=== PATIENT | female | born 1950 | race Caucasian/White ===

== ENCOUNTER 2017-12-24 23:08 | Emergency (ER) | payer MEDICARE ==
[~2017-12-24] VITALS: Ht 162.6 cm; Wt 70.3 kg
[~2017-12-24 23:08] MED LIST: DOCU100 PO; HYDR1TAB94 PO; IBUP600 PO; Milk Of Ma400 MG/5 M PO
[2017-12-25 00:08] LABS: BASOPHILS ABSOLUTE AUTO 0.04 K/mm3 (0.00-0.23); BASOPHILS PERCENT AUTO 1 % (0-2); EOSINOPHILS ABSOLUTE AUTO 0.27 K/mm3 (0.00-0.68); EOSINOPHILS PERCENT AUTO 4 % (0-6); Hematocrit 36.7 % (33.0-51.0); Hemoglobin 11.9 g/dL (11.5-16.0); IMMATURE GRAN ABSOLUTE AUTO 0.02 K/mm3 (0.00-0.10); IMMATURE GRAN PERCENT AUTO 0 % (0-1); LYMPHOCYTES ABSOLUTE AUTO 2.38 K/mm3 (0.84-5.20); LYMPHOCYTES PERCENT AUTO 32 % (21-46); MONOCYTES ABSOLUTE AUTO 0.72 K/mm3 (0.16-1.47); MONOCYTES PERCENT AUTO 10 % (4-13); Mean Corpuscular HGB 30.3 pg (26.0-34.0); Mean Corpuscular HGB Conc 32.4 g/dL (31.5-36.5); Mean Corpuscular Volume 93 fL (80-100); Mean Platelet Volume 9.8 fL (9.1-12.4); NEUTROPHILS ABSOLUTE AUTO 4.01 K/mm3 (1.96-9.15); NEUTROPHILS PERCENT AUTO 54 % (41-73); Platelet Count 203 K/mm3 (150-400); RDW Standard Deviation 47.3 fL (35.1-46.3); Red Blood Cell Count 3.93 M/mm3 (3.80-5.20); White Blood Cell Count 7.44 K/mm3 (4.00-11.30)
[2017-12-25 00:29] LABS: Alanine Aminotransfer (ALT/SGP 41 U/L (12-78); Albumin, Blood 3.1 g/dL (3.4-5.0); Albumin/Globulin Ratio 0.9 (0.8-1.8); Alk Phos 81 U/L (50-136); Anion Gap 8 mmol/L (6-16); Aspartate Aminotrans (AST/SGOT 28 U/L (12-37); Bilirubin, Total 0.2 mg/dL (0.1-1.0); Blood Urea Nitrogen 19 mg/dL (8-24); Bun/Creatinine Ratio 20.5 (12.0-20.0); CO2, Blood 24 mmol/L (21-32); Calcium, Blood 7.4 mg/dL (8.5-10.1); Chloride, Blood 109 mmol/L (98-108); Creatinine, Blood 0.93 mg/dL (0.40-1.00); Ethanol (Alcohol), Blood, Med <3 mg/dL; Globulin, Blood 3.5 g/dL (2.2-4.0); Glomerular Filtration Rate >60 (60-); Glucose, Blood 100 mg/dL (70-99); Potassium, Blood 4.1 mmol/L (3.5-5.5); Sodium, Blood 141 mmol/L (136-145); Total Protein, Blood 6.6 g/dL (6.4-8.2); Troponin I <0.015 ng/mL (0.000-0.040)
== END 2017-12-25 01:30 | disposition home or self-care (01) ==
LOC: ER 23:08
PROVIDERS: Emergency Medicine
DX: R29.818 Other symptoms and signs involving the nervous system (principal); Z88.8 Allergy status to other drugs, medicaments and biological substances
CPT/HCPCS: 70450; 71046; 80053; 81000; 84484; 85025; 99284; G0480

== ENCOUNTER → 2019-09-13 | Outpatient (CLI) | payer MEDICARE | END | disposition home or self-care (01) | LOC: LAB SHORT 11:02 → LAB EV 11:02 | DX: N39.0 Urinary tract infection, site not specified (principal) | CPT/HCPCS: 87077; 87086; 87186 ==

== ENCOUNTER → 2020-10-10 | Outpatient (CLI) | payer MEDICARE | END | disposition home or self-care (01) | LOC: LAB SHORT 09:52 → LAB EV 09:52 | DX: N39.0 Urinary tract infection, site not specified (principal) | CPT/HCPCS: 87086 ==

== ENCOUNTER → 2021-03-06 | Outpatient (CLI) | payer MEDICARE | END | disposition home or self-care (01) | LOC: LAB EV 12:53 → LAB SHORT 12:53 | DX: N39.0 Urinary tract infection, site not specified (principal) | CPT/HCPCS: 87077; 87086; 87186 ==

== ENCOUNTER → 2021-04-03 | Outpatient (CLI) | payer MEDICARE | END | disposition home or self-care (01) | LOC: LAB SHORT 17:23 → LAB 17:23 | DX: N39.0 Urinary tract infection, site not specified (principal) | CPT/HCPCS: 87086 ==

== ENCOUNTER → 2022-01-17 | Outpatient (CLI) | payer MEDICARE ==
[2022-01-17 16:41] LABS: BASOPHILS ABSOLUTE AUTO 0.02 K/mm3 (0.00-0.23); BASOPHILS PERCENT AUTO 0 % (0-2); EOSINOPHILS ABSOLUTE AUTO 0.16 K/mm3 (0.00-0.68); EOSINOPHILS PERCENT AUTO 2 % (0-6); Hematocrit 40.2 % (33.0-51.0); Hemoglobin 12.9 g/dL (11.5-16.0); IMMATURE GRAN ABSOLUTE AUTO 0.03 K/mm3 (0.00-0.10); IMMATURE GRAN PERCENT AUTO 0 % (0-1); LYMPHOCYTES ABSOLUTE AUTO 2.31 K/mm3 (0.84-5.20); LYMPHOCYTES PERCENT AUTO 26 % (21-46); MONOCYTES ABSOLUTE AUTO 0.55 K/mm3 (0.16-1.47); MONOCYTES PERCENT AUTO 6 % (4-13); Mean Corpuscular HGB 30.3 pg (26.0-34.0); Mean Corpuscular HGB Conc 32.1 g/dL (31.5-36.5); Mean Corpuscular Volume 94 fL (80-100); Mean Platelet Volume 10.4 fL (9.1-12.4); NEUTROPHILS ABSOLUTE AUTO 5.91 K/mm3 (1.96-9.15); NEUTROPHILS PERCENT AUTO 66 % (41-73); Platelet Count 213 K/mm3 (150-400); RDW Coefficient Variation 14.5 % (11.7-14.2); RDW Standard Deviation 49.9 fL (35.1-46.3); Red Blood Cell Count 4.26 M/mm3 (3.80-5.20); White Blood Cell Count 8.98 K/mm3 (4.00-11.30)
== END ==
LOC: LAB SHORT 16:05
PROVIDERS: Hospitalist
DX: M79.662 Pain in left lower leg (principal)
CPT/HCPCS: 85025; 85379; 85651

== ENCOUNTER 2022-02-10 16:27 | Emergency (ER) | payer MEDICARE ==
[~2022-02-10] VITALS: Ht 162.6 cm; Wt 65.8 kg
[2022-02-10 17:03] LABS: BASOPHILS ABSOLUTE AUTO 0.03 K/mm3 (0.00-0.23); BASOPHILS PERCENT AUTO 0 % (0-2); EOSINOPHILS ABSOLUTE AUTO 0.14 K/mm3 (0.00-0.68); EOSINOPHILS PERCENT AUTO 2 % (0-6); Hemoglobin 12.9 g/dL (11.5-16.0); IMMATURE GRAN ABSOLUTE AUTO 0.02 K/mm3 (0.00-0.10); IMMATURE GRAN PERCENT AUTO 0 % (0-1); LYMPHOCYTES ABSOLUTE AUTO 2.17 K/mm3 (0.84-5.20); LYMPHOCYTES PERCENT AUTO 24 % (21-46); MONOCYTES ABSOLUTE AUTO 0.59 K/mm3 (0.16-1.47); MONOCYTES PERCENT AUTO 7 % (4-13); Mean Corpuscular HGB Conc 32.3 g/dL (31.5-36.5); Mean Corpuscular Volume 93 fL (80-100); Mean Platelet Volume 9.8 fL (9.1-12.4); NEUTROPHILS ABSOLUTE AUTO 6.14 K/mm3 (1.96-9.15); NEUTROPHILS PERCENT AUTO 68 % (41-73); Platelet Count 214 K/mm3 (150-400); RDW Coefficient Variation 14.6 % (11.7-14.2); RDW Standard Deviation 49.8 fL (35.1-46.3); White Blood Cell Count 9.09 K/mm3 (4.00-11.30)
[2022-02-10 17:29] LABS: Alanine Aminotransfer (ALT/SGP 32 U/L (12-78); Albumin, Blood 3.6 g/dL (3.4-5.0); Alk Phos 82 U/L (50-136); Anion Gap 9 mmol/L (6-16); Aspartate Aminotrans (AST/SGOT 15 U/L (12-37); Bilirubin, Total 0.5 mg/dL (0.1-1.0); Blood Urea Nitrogen 21 mg/dL (8-24); Bun/Creatinine Ratio 23.8 (12.0-20.0); CO2, Blood 25 mmol/L (21-32); Calcium, Blood 8.7 mg/dL (8.5-10.1); Chloride, Blood 108 mmol/L (98-108); Creatinine, Blood 0.88 mg/dL (0.40-1.00); Globulin, Blood 3.5 g/dL (2.2-4.0); Glomerular Filtration Rate >60 (60-); Glucose, Blood 104 mg/dL (70-99); Potassium, Blood 3.6 mmol/L (3.5-5.5); Sodium, Blood 142 mmol/L (136-145); Total Protein, Blood 7.1 g/dL (6.4-8.2)
[2022-02-10 18:14] LABS: C-REACTIVE PROTEIN, EXT RANGE <0.290 mg/dL (0.000-0.300); Magnesium, Blood 2.1 mg/dL (1.6-2.4); Phosphorus, Blood 3.6 mg/dL (2.5-4.9)
== END 2022-02-10 21:28 | disposition home or self-care (01) ==
LOC: ER 16:27
PROVIDERS: Physician Assistant
DX: M79.662 Pain in left lower leg (principal)
CPT/HCPCS: 36415; 71046; 80053; 83690; 83735; 83880; 84100; 84484; 85025; 86140; 93005; 93010; 93971; 99284-25

== ENCOUNTER 2022-04-26 15:50 | Emergency (ER) | payer MEDICARE ==
[~2022-04-26] VITALS: Ht 162.6 cm; Wt 63.5 kg
== END 2022-04-26 18:10 | disposition home or self-care (01) ==
LOC: ER 15:50
DX: S83.91XA Sprain of unspecified site of right knee, initial encounter (principal); X50.1XXA Overexertion from prolonged static or awkward postures, initial encounter
CPT/HCPCS: 73562-RT

== ENCOUNTER 2023-03-18 13:54 | Emergency (ER) | payer MEDICARE ==
[~2023-03-18] VITALS: Ht 162.6 cm; Wt 63.5 kg
[2023-03-18 14:47] LABS: BASOPHILS ABSOLUTE AUTO 0.03 K/mm3 (0.00-0.23); BASOPHILS PERCENT AUTO 0 % (0-2); EOSINOPHILS ABSOLUTE AUTO 0.12 K/mm3 (0.00-0.68); EOSINOPHILS PERCENT AUTO 2 % (0-6); Hematocrit 38.8 % (33.0-51.0); Hemoglobin 12.9 g/dL (11.5-16.0); IMMATURE GRAN ABSOLUTE AUTO 0.02 K/mm3 (0.00-0.10); IMMATURE GRAN PERCENT AUTO 0 % (0-1); LYMPHOCYTES ABSOLUTE AUTO 2.27 K/mm3 (0.84-5.20); LYMPHOCYTES PERCENT AUTO 31 % (21-46); MONOCYTES ABSOLUTE AUTO 0.58 K/mm3 (0.16-1.47); MONOCYTES PERCENT AUTO 8 % (4-13); Mean Corpuscular HGB 30.9 pg (26.0-34.0); Mean Corpuscular HGB Conc 33.2 g/dL (31.5-36.5); Mean Corpuscular Volume 93 fL (80-100); Mean Platelet Volume 10.2 fL (9.1-12.4); NEUTROPHILS ABSOLUTE AUTO 4.21 K/mm3 (1.96-9.15); NEUTROPHILS PERCENT AUTO 58 % (41-73); NRBC ABSOLUTE 0.02 K/mm3 (0.00-0.02); NRBC Auto 0.3 /100 WBC (0.0-0.2); Platelet Count 186 K/mm3 (150-400); RDW Coefficient Variation 15.1 % (11.7-14.2); RDW Standard Deviation 51.5 fL (35.1-46.3); Red Blood Cell Count 4.18 M/mm3 (3.80-5.20); White Blood Cell Count 7.23 K/mm3 (4.00-11.30)
[2023-03-18 14:50] LABS: Albumin, Blood 4.1 g/dL (3.4-5.0); Albumin/Globulin Ratio 1.2 (0.8-1.8); Bilirubin, Total 0.7 mg/dL (0.1-1.0); Bun/Creatinine Ratio 24.4 (12.0-20.0); Calcium, Blood 9.1 mg/dL (8.5-10.1); Creatinine, Blood 0.78 mg/dL (0.40-1.00); Globulin, Blood 3.3 g/dL (2.2-4.0); Potassium, Blood 3.9 mmol/L (3.5-5.5); Total Protein, Blood 7.4 g/dL (6.4-8.2)
[2023-03-18 17:57] VITALS: BP 138/69
== END 2023-03-18 18:48 | disposition home or self-care (01) ==
LOC: ER 13:54
PROVIDERS: Physician Assistant
DX: R07.9 Chest pain, unspecified (principal); M79.602 Pain in left arm; M19.90 Unspecified osteoarthritis, unspecified site
CPT/HCPCS: 71046; 80053; 83880; 84484; 85025; 93005; 93010; 99284-25

== ENCOUNTER → 2023-11-20 | Outpatient (CLI) | payer MEDICARE | LOC: LAB SHORT 09:29 → LAB 09:29 | DX: N39.0 Urinary tract infection, site not specified (principal) | CPT/HCPCS: 87077; 87086; 87186 ==

== ENCOUNTER 2024-02-18 15:16 | Emergency (ER) | payer OTHER, MEDICARE ==
[~2024-02-18] VITALS: Ht 162.6 cm; Wt 62.1 kg
[~2024-02-18 15:16] MED LIST changes: +ACET500 PO; +Aspir 8181 MG PO; +GABA300 PO; +HYDCOR2.5C PR; +OXYC5 PO
[2024-02-18 16:01] LABS: BASOPHILS ABSOLUTE AUTO 0.03 K/mm3 (0.00-0.23); BASOPHILS PERCENT AUTO 0 % (0-2); EOSINOPHILS ABSOLUTE AUTO 0.11 K/mm3 (0.00-0.68); EOSINOPHILS PERCENT AUTO 1 % (0-6); Hematocrit 37.7 % (33.0-51.0); Hemoglobin 12.5 g/dL (11.5-16.0); IMMATURE GRAN ABSOLUTE AUTO 0.02 K/mm3 (0.00-0.10); IMMATURE GRAN PERCENT AUTO 0 % (0-1); LYMPHOCYTES ABSOLUTE AUTO 2.23 K/mm3 (0.84-5.20); LYMPHOCYTES PERCENT AUTO 26 % (21-46); MONOCYTES ABSOLUTE AUTO 0.67 K/mm3 (0.16-1.47); MONOCYTES PERCENT AUTO 8 % (4-13); Mean Corpuscular HGB 30.4 pg (26.0-34.0); Mean Corpuscular HGB Conc 33.2 g/dL (31.5-36.5); Mean Corpuscular Volume 92 fL (80-100); Mean Platelet Volume 9.5 fL (9.1-12.4); NEUTROPHILS ABSOLUTE AUTO 5.59 K/mm3 (1.96-9.15); NEUTROPHILS PERCENT AUTO 65 % (41-73); Platelet Count 236 K/mm3 (150-400); RDW Coefficient Variation 15.1 % (11.7-14.2); RDW Standard Deviation 50.9 fL (35.1-46.3); Red Blood Cell Count 4.11 M/mm3 (3.80-5.20); White Blood Cell Count 8.65 K/mm3 (4.00-11.30)
[2024-02-18 16:25] LABS: Albumin, Blood 4.1 g/dL (3.4-5.0); Albumin/Globulin Ratio 1.1 (0.8-1.8); Bilirubin, Total 0.7 mg/dL (0.1-1.0); Bun/Creatinine Ratio 23.9 (12.0-20.0); Calcium, Blood 9.4 mg/dL (8.5-10.1); Creatinine, Blood 0.67 mg/dL (0.40-1.00); Globulin, Blood 3.8 g/dL (2.2-4.0); Potassium, Blood 4.1 mmol/L (3.5-5.5); Total Protein, Blood 7.9 g/dL (6.4-8.2)
[2024-02-18 17:48] VITALS: BP 125/75
[2024-02-18] MEDS ORDERED: NEURONTIN300 MG PO (17:49)
== END 2024-02-18 18:10 | disposition home or self-care (01) ==
LOC: ER 15:16
PROVIDERS: Physician Assistant
DX: R10.9 Unspecified abdominal pain (principal); R07.9 Chest pain, unspecified; M25.561 Pain in right knee; M25.512 Pain in left shoulder; V89.2XXA Person injured in unspecified motor-vehicle accident, traffic, initial encounter; Z88.6 Allergy status to analgesic agent; Z79.82 Long term (current) use of aspirin
CPT/HCPCS: 71260; 74177; 80053; 85025; 99284-25; Q9967

== ENCOUNTER 2024-08-05 15:30 | Emergency (ER) | payer MEDICARE ==
[~2024-08-05] VITALS: Ht 162.6 cm; Wt 63.5 kg
[~2024-08-05 15:30] MED LIST changes: +NEURONTIN300 MG PO
[2024-08-05 15:48] VITALS: BP 123/77
[2024-08-05 15:50] LABS: Source, Urine Clean Catch
[2024-08-05 15:53] LABS: Appearance, Urine Cloudy (Clear); Bilirubin, Urine Neg (Neg); Blood, Urine 2+ (Neg); Color, Urine Yellow (P-Yellow); Glucose Qualitative, Urine Neg (Neg); Ketones, Urine Neg (Neg); Leukocyte Esterase, Urine 3+ (Neg); Nitrite, Urine Neg (Neg); Protein, Urine 2+ (Neg); Specific Gravity, Urine 1.025 (1.003-1.022); Urobilinogen, Urine NORM (Normal)
[2024-08-05 16:41] LABS: Bacteria Many /hpf; Mucus Light (0-Heavy); Red Blood Cells, Urine 0-2 /hpf (0-2); Squamous Epithelial Cells Few /hpf (Few); White Blood Cells, Urine TNTC /hpf (0-5)
[2024-08-05] MEDS ORDERED: CEPH500 PO ×2 (16:48→16:55)
[2024-08-05] MEDS ORDERED: Cephalexin Monohydrate 500 MG Cap PO ONE (16:50)
== END 2024-08-05 16:58 | disposition home or self-care (01) ==
LOC: ER 15:30
PROVIDERS: Physician Assistant
DX: N39.0 Urinary tract infection, site not specified (principal); Z79.899 Other long term (current) drug therapy; Z88.6 Allergy status to analgesic agent
CPT/HCPCS: 81001; 87077; 87086; 87186; 99283; A9270

== ENCOUNTER 2025-05-13 09:29 | Emergency (ER) | payer MEDICARE ==
[~2025-05-13] VITALS: Ht 162.6 cm; Wt 65.8 kg
[~2025-05-13 09:29] MED LIST changes: +CEPH500 PO
[2025-05-13 09:40] VITALS: BP 144/70
[2025-05-13] MEDS ORDERED: GABA300 PO (10:08)
[2025-05-13] MEDS ORDERED: ACET500 PO (10:09)
[2025-05-13] MEDS ORDERED: Ultram50 MG PO (10:31)
== END 2025-05-13 11:02 | disposition home or self-care (01) ==
LOC: ER 09:29
DX: S92.525A Nondisplaced fracture of middle phalanx of left lesser toe(s), initial encounter for closed fracture (principal); Z88.6 Allergy status to analgesic agent; Z79.899 Other long term (current) drug therapy; Z59.89 Other problems related to housing and economic circumstances; W22.8XXA Striking against or struck by other objects, initial encounter
CPT/HCPCS: 73630; 99283-25

== ENCOUNTER → 2025-09-15 | Outpatient (CLI) | payer MEDICARE ==
[~2025-09-15] MED LIST changes: +Ultram50 MG PO
== END ==
LOC: LAB SHORT 14:04 → LAB 14:04
DX: N30.01 Acute cystitis with hematuria (principal)
CPT/HCPCS: 87077; 87086; 87186